=== PATIENT | male | born 1965 | race American Indian/Alaskan Native ===

== ENCOUNTER 2016-10-02 19:19 | Emergency (ER) | payer BC ==
[2016-10-02] MEDS ORDERED: ACTIVASE ONE (19:27)
[2016-10-02] MEDS ORDERED: NACL 0.9% 1000 ML 1,000 ML IV ONE (19:28)
--- NOTE | 2016-10-02 19:33 | Emergency Department Report ---
ED Neuro Deficit HPI - General Chief Complaint: Neuro Symptoms/Deficit Stated Complaint: POSSIBLE CVA Time Seen by Provider: 10/02/16 19:27 Source: patient, family Mode of arrival: Ambulatory Limitations: Other (cva) - History of Present Illness Initial Comments: Patient is a 50-year-old male with a history of sarcoidosis, hypertension, hyperlipidemia, previous stroke with no deficits presented to the ER with acute stroke. He was last seen normal at 1715 by when he reported that he couldn 't move the right side of his body, slurred speech, and altered mental status. However, patient noted not be feeling well this morning with vertigo and vomiting at 11 am and this was the same presentation he had the last time he had a stroke. The last known normal time is unclear at this time. Otherwise patient has no deficits patient works a normal job patient lives with at home. No fevers, chills, headache, dizziness, abdominal pain, chest pain, shortness of breath, travel, sick contacts. Patient does take a baby aspirin 81 mg daily. -: hour(s) Last Observed Normal: 17:15 Location: right face, right arm, right leg Presenting Symptoms: Present: Weak/Paralyzed One Side, Facial Droop/Numbness, Unable to Speak Clearly Place: home Severity: moderate, severe Quality: weak Improves With: none Worsens With: none On Anticoagulants: Yes (asa 81 mg daily) Context: sudden onset - Related Data Home Medications: Home Medications Medication Instructions Recorded Confirmed Last Taken Atenolol/Chlorthalidone [Tenoretic 1 tab PO QDAY 10/02/16 10/02/16 Unknown 50-25] Previous Rx's Medication Instructions Recorded Last Taken Type Aspirin [Aspirin TAB] 325 mg PO QDAY #30 tablet 09/12/15 Unknown Rx AtorvaSTATin [Lipitor] 20 mg PO QHS #30 tablet 09/12/15 Unknown Rx Allergies/Adverse Reactions: Allergies Allergy/AdvReac Type Severity Reaction Status Date / Time No Known Allergies Allergy Verified 08/13/13 06:01 ED Review of Systems ROS: Stated complaint: POSSIBLE CVA Other details as noted in HPI Comment: Unobtainable due to pts medical conditions ED Past Medical Hx - Past Medical History Hx Hypertension: Yes Hx CVA: Yes (No deficits) Additional medical history: SARCODOSIS, Leaking Heart Valve, HLD - Social History Smoking Status: Never Smoker - Medications Home Medications: Home Medications Medication Instructions Recorded Confirmed Last Taken Type Aspirin [Aspirin TAB] 325 mg PO QDAY #30 tablet 09/12/15 10/02/16 Unknown Rx AtorvaSTATin [Lipitor] 20 mg PO QHS #30 tablet 09/12/15 10/02/16 Unknown Rx Atenolol/Chlorthalidone [Tenoretic 1 tab PO QDAY 10/02/16 10/02/16 Unknown History 50-25] ED Neuro Physical Exam - General Limitations: Altered Mental Status, Other (dysarthric) General appearance: lethargic Suspected Stroke: Yes - Head Head exam: Present: atraumatic, normocephalic - Eye Eye exam: Present: normal appearance, PERRL, EOMI. Absent: scleral icterus, conjunctival injection, nystagmus Pupils: Present: normal accommodation. Absent: irregular, unequal, miosis - ENT ENT exam: Present: mucous membranes moist - Neck Neck exam: Present: normal inspection - Respiratory Respiratory exam: Present: normal lung sounds bilaterally. Absent: respiratory distress - Cardiovascular Cardiovascular Exam: Present: regular rate, normal rhythm. Absent: systolic murmur, diastolic murmur, rubs, gallop - GI/Abdominal GI/Abdominal exam: Present: soft, normal bowel sounds - Rectal Rectal exam: Present: deferred - Extremities Exam Extremities exam: Present: normal inspection. Absent: full ROM, tenderness, pedal edema, joint swelling, calf tenderness - Expanded Upper Extremity Exam Left General: Present: normal inspection Shoulder Exam: Present: normal inspection, full ROM Upper Arm exam: Present: normal inspection, full ROM Elbow exam: Present: normal inspection, full ROM Forearm Wrist exam: Present: normal inspection, full ROM Hand Wrist exam: Present: normal inspection, full ROM Neuro motor exam: Present: wrist extension intact, thumb opposition intact, thumb IP flexion intact, thumb adduction intact, fingers 2-5 abduction intact, other (Strength 4/5 left upper and lower) Neurosensory exam: Present: radial nerve intact, ulnar nerve intact, median nerve intact Vascular: Present: normal capillary refill, radial pulse, ulnar pulse. Absent: vascular compromise Right General: Present: normal inspection Shoulder Exam: Present: normal inspection. Absent: full ROM Upper Arm exam: Present: normal inspection. Absent: full ROM, tenderness, swelling, deformity Elbow exam: Present: normal inspection. Absent: full ROM, tenderness, swelling , deformity Forearm Wrist exam: Present: normal inspection. Absent: full ROM, tenderness, deformity Hand Wrist exam: Present: normal inspection. Absent: full ROM, tenderness, swelling, deformity Neuro motor exam: Present: other (Completely flaccid Righ upper extremity) Neurosensory exam: Absent: 2-point discrimination Vascular: Present: normal capillary refill, radial pulse. Absent: vascular compromise - Expanded Lower Extremity Exam Right Hip exam: Present: normal inspection. Absent: full ROM, tenderness, swelling, deformity Upper Leg exam: Present: normal inspection. Absent: full ROM, tenderness, swelling, deformity Knee exam: Present: normal inspection. Absent: full ROM, tenderness, swelling, deformity Lower Leg exam: Present: normal inspection. Absent: full ROM, tenderness, swelling, deformity Ankle exam: Present: normal inspection. Absent: full ROM, tenderness, swelling , deformity Foot/Toe exam: Present: normal inspection. Absent: full ROM, tenderness, swelling, deformity Neuro vascular tendon exam: Present: no vascular compromise, motor deficit, abnormal 2-point discrimination. Absent: pulse deficit, abnormal cap refill, sensory deficit Gait: Positive: not tested/not observed (Right lower leg flaccid) - Back Exam Back exam: Present: normal inspection - Neurological Exam Neurological exam: Present: abnormal gait, motor sensory deficit, other ( dysarthric, R sided facial droop) - NIHSS Assessment Interval: Baseline 1a. Level of Consciousness: not alert, arousable 1b. LOC Questions: answers 1 question correctly 1c. LOC Commands: performs 1 task correctly 2. Best Gaze: normal 3. Visual: no visual loss 4. Facial Palsy: minor paralysis 5b. Motor Arm Right: no movement 5a. Motor Arm Left: no drift 6a. Motor Leg Left: no drift 6b. Motor Leg Right: no movement 7. Limb Ataxia: present 1 limb 8. Sensory: normal 9. Best Language: mild/moderate aphasia 10. Dysarthria: severe dysarthria 11. Extinction/Inattention: profound inattention Total Score: 18 Stroke Severity: Moderate to Severe Stroke - Skin Skin exam: Present: warm, dry, intact ED Course Vital Signs 10/02/16 10/02/16 19:52 20:46 Pulse Rate 59 L Respiratory 14 Rate Blood Pressure 120/67 [Left] O2 Sat by Pulse 98 100 Oximetry - Lab Data Result diagrams: 10/02/16 19:25 10/02/16 19:25 Lab Results 10/02/16 10/02/16 10/02/16 Range/Units 19:25 19:25 19:25 WBC 9.6 (4.5-11.0) K/mm3 RBC 6.48 H (3.65-5.03) M/mm3 Hgb 13.2 (11.8-15.2) gm/dl Hct 42.4 (35.5-45.6) % MCV 66 L (84-94) fl MCH 20 L (28-32) pg MCHC 31 L (32-34) % RDW 15.6 H (13.2-15.2) % Plt Count 209 (140-440) K/mm3 Lymph % (Auto) 11.2 L (13.4-35.0) % [place] % (Auto) 7.0 (0.0-7.3) % Eos % (Auto) 0.0 (0.0-4.3) % Baso % (Auto) 0.4 (0.0-1.8) % Lymph # 1.1 L (1.2-5.4) K/mm3 [place] # 0.7 (0.0-0.8) K/mm3 Eos # 0.0 (0.0-0.4) K/mm3 Baso # 0.0 (0.0-0.1) K/mm3 Seg Neutrophils % 81.4 H (40.0-70.0) % Seg Neutrophils # 7.8 H (1.8-7.7) K/mm3 PT 13.8 (12.2-14.9) Sec. INR 1.07 (0.87-1.13) APTT 33.7 (24.2-36.6) Sec. Thrombin Time 16.8 (15.1-19.6) Sec. Sodium 137 (137-145) mmol/L Potassium 3.6 (3.6-5.0) mmol/L Chloride 95.1 L (98-107) mmol/L Carbon Dioxide 26 (22-30) mmol/L Anion Gap 20 mmol/L BUN 15 (9-20) mg/dL Creatinine 0.8 (0.8-1.5) mg/dL Estimated GFR > 60 ml/min BUN/Creatinine Ratio 18.75 % Glucose 188 H (75-100) mg/dL Calcium 9.0 (8.4-10.2) mg/dL Magnesium (1.7-2.3) mg/dL Total Bilirubin 0.9 (0.1-1.2) mg/dL AST 31 (5-40) units/L ALT 27 (7-56) units/L Alkaline Phosphatase 91 (35-129) units/L Total Creatine Kinase 501 H (55-170) units/L CK-MB (CK-2) 8.5 H (0.0-4.0) ng/mL CK-MB (CK-2) Rel Index 1.6 (0-4) Troponin T < 0.010 (0.00-0.029) ng/mL Total Protein 7.6 (6.3-8.2) g/dL Albumin 3.9 (3.9-5) g/dL Albumin/Globulin Ratio 1.1 % Urine Color (Yellow) Urine Turbidity (Clear) Urine pH (5.0-7.0) Ur Specific [place] (1.003-1.030) Urine Protein (Negative) mg/dL Urine Glucose (UA) (Negative) mg/dL Urine Ketones (Negative) mg/dL Urine Blood (Negative) Urine Nitrite (Negative) Urine Bilirubin (Negative) Urine Urobilinogen (<2.0) mg/dL Ur Leukocyte Esterase (Negative) Urine WBC (Auto) (0.0-6.0) /HPF Urine RBC (Auto) (0.0-6.0) /HPF Hyaline Casts /LPF Urine Mucus /HPF 10/02/16 10/02/16 Range/Units 20:00 20:16 WBC (4.5-11.0) K/mm3 RBC (3.65-5.03) M/mm3 Hgb (11.8-15.2) gm/dl Hct (35.5-45.6) % MCV (84-94) fl MCH (28-32) pg MCHC (32-34) % RDW (13.2-15.2) % Plt Count (140-440) K/mm3 Lymph % (Auto) (13.4-35.0) % [place] % (Auto) (0.0-7.3) % Eos % (Auto) (0.0-4.3) % Baso % (Auto) (0.0-1.8) % Lymph # (1.2-5.4) K/mm3 [place] # (0.0-0.8) K/mm3 Eos # (0.0-0.4) K/mm3 Baso # (0.0-0.1) K/mm3 Seg Neutrophils % (40.0-70.0) % Seg Neutrophils # (1.8-7.7) K/mm3 PT (12.2-14.9) Sec. INR (0.87-1.13) APTT (24.2-36.6) Sec. Thrombin Time (15.1-19.6) Sec. Sodium (137-145) mmol/L Potassium (3.6-5.0) mmol/L Chloride (98-107) mmol/L Carbon Dioxide (22-30) mmol/L Anion Gap mmol/L BUN (9-20) mg/dL Creatinine (0.8-1.5) mg/dL Estimated GFR ml/min BUN/Creatinine Ratio % Glucose (75-100) mg/dL Calcium (8.4-10.2) mg/dL Magnesium 1.9 (1.7-2.3) mg/dL Total Bilirubin (0.1-1.2) mg/dL AST (5-40) units/L ALT (7-56) units/L Alkaline Phosphatase (35-129) units/L Total Creatine Kinase (55-170) units/L CK-MB (CK-2) (0.0-4.0) ng/mL CK-MB (CK-2) Rel Index (0-4) Troponin T < 0.010 (0.00-0.029) ng/mL Total Protein (6.3-8.2) g/dL Albumin (3.9-5) g/dL Albumin/Globulin Ratio % Urine Color Yellow (Yellow) Urine Turbidity Clear (Clear) Urine pH 7.0 (5.0-7.0) Ur Specific [place] 1.017 (1.003-1.030) Urine Protein 100 mg/dl (Negative) mg/dL Urine Glucose (UA) Neg (Negative) mg/dL Urine Ketones 20 (Negative) mg/dL Urine Blood Neg (Negative) Urine Nitrite Neg (Negative) Urine Bilirubin Neg (Negative) Urine Urobilinogen < 2.0 (<2.0) mg/dL Ur Leukocyte Esterase Neg (Negative) Urine WBC (Auto) < 1.0 (0.0-6.0) /HPF Urine RBC (Auto) < 1.0 (0.0-6.0) /HPF Hyaline Casts 1 /LPF Urine Mucus Few /HPF - EKG Data -: EKG Interpreted by Me EKG shows normal: sinus rhythm, axis (normal), intervals (1st degree AV block, QTc: 470ms), QRS complexes (narrow), ST-T waves (TWI in II, III, aVF, V3-V6, (-) ST changes, no STEMI) Rate: bradycardia (56 bpm) When compared to previous EKG there are: changes noted, other (TWI in inferior leads are more pronounced, TWI in V3 is new) - Medical Decision Making Elevated upon initial arrival for dysarthria, right-sided flaccid upper and lower extremity. 19:[address] scanner 19:[address] Flanagan neurologist will evaluate the patient via robot Discussed with radiologist O intracranial hemorrhage or dense MCA sign of visible, CTA could not be performed due to machine malfunction. 20:[address] Ko at [facility] he reviewed the CAT scan worrisome for a basilar dense sign we will fly the patient from here to [facility] to neuro ICU. - Core Measures AMI Core Measures Followed: Yes Door to CT Read: < 60 minutes Door to Neurologist Consult: 20 minutes - Thrombolytic Inclusion/Exclusion Thrombolytic Exclusion Criteria: Symptom Onset > 3 Hours Thrombolytic Inclusion Criteria: Negative CT Scan for ICH Critical Care Time: Yes (60 minutes) Critical care time in (mins) excluding proc time.: 60 (minutes) Critical care attestation.: If time is entered above; I have spent that time in minutes in the direct care of this critically ill patient, excluding procedure time. Critical Care Time: 60 mins ED Disposition Clinical Impression: CVA (cerebral vascular accident), Full code status Disposition: DC/TX ANOTHER TYPE HEALTHCARE Is pt being admited?: No Condition: Critical Additional Instructions: Pt to be transferred to [facility] neuro ICU to be evaluated by Dr Ko and his team
[2016-10-02 19:53] LABS: Basophils % (Auto) 0.4 % (0.0-1.8); Hematocrit 42.4 % (35.5-45.6); Hemoglobin 13.2 gm/dl (11.8-15.2); Mean Corpuscular HGB Conc 31 % (32-34); Platelet Count 209 K/mm3 (140-440); Red Blood Count 6.48 M/mm3 (3.65-5.03); Red Cell Distribution Width 15.6 % (13.2-15.2); White Blood Count 9.6 K/mm3 (4.5-11.0)
--- NOTE | 2016-10-02 19:53 | Cat Scan Report ---
FINAL REPORT EXAM: CT HEAD/BRAIN WO CON HISTORY: suspected stroke TECHNIQUE: Standard unenhanced CT of the head at 2.5 millimeter axial increments. PRIORS: CT head 09/10/2015 FINDINGS: The ventricular system is normal in size and configuration. There is no evidence for parenchymal volume loss. There is a remote infarct involving the left occipital lobe along midline medially which has evolved since the previous exam. There is also stable low-density in the right frontal lobe near the sylvian fissure probably due to prior infarct. There is no evidence for mass lesion, mass effect, midline shift, acute intracranial hemorrhage, or acute ischemia/ infarction. No evidence for acute skull fracture is seen. No abnormality in the overlying scalp soft tissues is seen. Visualized paranasal sinuses demonstrate air-fluid levels in the maxillary sinuses. Numerous ethmoid air cells are also completely opacified. The sphenoid and frontal sinuses are clear. Mastoid air cells are normal IMPRESSION: 1. no acute intracranial process noted. No evidence for new infarct. 2. Areas of remote infarct in the left occipital lobe and right frontal lobe 3. Acute sinusitis of the ethmoid and maxillary sinuses bilaterally
[2016-10-02 19:57] LABS: Mean Corpuscular Hemoglobin 20 pg (28-32); Mean Corpuscular Volume 66 fl (84-94)
[2016-10-02 20:06] LABS: Creatine Kinase MB 8.5 ng/mL (0.0-4.0); INR 1.07 (0.87-1.13); Partial Thromboplastin Time 33.7 Sec. (24.2-36.6)
[2016-10-02 20:07] LABS: Alanine Aminotransferase 27 units/L (7-56); Albumin 3.9 g/dL (3.9-5); Albumin/Globulin Ratio 1.1 %; Alkaline Phosphatase 91 units/L (35-129); Anion Gap 20 mmol/L; BUN/Creatinine Ratio 18.75; Bilirubin,Total 0.9 mg/dL (0.1-1.2); Blood Urea Nitrogen 15 mg/dL (9-20); Carbon Dioxide 26 mmol/L (22-30); Chloride 95.1 mmol/L (98-107); Creatine Kinase 501 units/L (55-170); Glucose 188 mg/dL (75-100); Potassium 3.6 mmol/L (3.6-5.0); Sodium 137 mmol/L (137-145); Total Protein 7.6 g/dL (6.3-8.2)
[2016-10-02 20:35] LABS: Bilirubin,Urine NEG (Negative); Blood,Urine NEG (Negative); Ketones,Urine 20 mg/dL (Negative); Leukocyte Esterase,Urine NEG (Negative); Mucus,Urine FEW /HPF; Nitrite,Urine NEG (Negative); RBC,Urine < 1.0 /HPF (0.0-6.0); Urobilinogen,Urine < 2.0 mg/dL (<2.0); WBC,Urine < 1.0 /HPF (0.0-6.0)
[2016-10-02 20:46] VITALS: BP 120/67
[2016-10-02 21:01] LABS: Magnesium 1.9 mg/dL (1.7-2.3)
--- NOTE | 2016-10-03 08:54 | XRay Report ---
Portable chest: Stroke. The lungs are clear. The mediastinal contour is unremarkable. There is no vascular congestion. No significant change compared to prior study in September 2014. Impression: No acute findings.
== END 2016-10-02 21:15 | disposition other institution (70) ==
LOC: ED 19:19
DX: I63.9 Cerebral infarction, unspecified (principal); I10 Essential (primary) hypertension
CPT/HCPCS: 36415; 70450; 71010; 80053; 81001; 82550; 82553; 82962; 83735; 84484; 85025; 85610; 85670; 85730; 93005; 93010; 96360; 99291; J2997; J7030

== ENCOUNTER 2016-11-14 11:13 | Emergency (ER) | payer BC ==
[~2016-11-14 11:13] MED LIST: ADRENALIN ONE; SODIUM BICARBONATE IV ONE
--- NOTE | 2016-11-14 11:30 | Emergency Department Report ---
HPI - General Time Seen by Provider: 11/14/16 11:25 - HPI HPI: This is a 50-year-old -[place] male who presents to the emergency department by EMS in cardiac arrest. Allegedly the patient was in the middle of sexual intercourse when he appeared to go unresponsive and pulseless. EMS was called at 10:28 AM and was at the house shortly afterwards. The patient was intubated by EMS. The patient appeared to be in either V. fib or V. tach, per EMS, and received 4 different defibrillating shocks as well as 4 rounds of epinephrine and one of sodium bicarbonate. The patient allegedly has a past medical history of sarcoidosis and a previous CVA. He presents to the emergency department intubated and still pulseless and ACLS and CPR continued. ED Past Medical Hx - Past Medical History Hx Hypertension: Yes Hx CVA: Yes (No deficits) Additional medical history: SARCODOSIS, Leaking Heart Valve, HLD - Social History Smoking Status: Never Smoker - Medications Home Medications: Home Medications Medication Instructions Recorded Confirmed Last Taken Type Aspirin [Aspirin TAB] 325 mg PO QDAY #30 tablet 09/12/15 10/02/16 Unknown Rx AtorvaSTATin [Lipitor] 20 mg PO QHS #30 tablet 09/12/15 10/02/16 Unknown Rx Atenolol/Chlorthalidone [Tenoretic 1 tab PO QDAY 10/02/16 10/02/16 Unknown History 50-25] ED Review of Systems ROS: Stated complaint: CHF Other details as noted in HPI Comment: Unobtainable due to pts medical conditions Physical Exam - Physical Exam Physical Exam: GENERAL: Patient is ill-appearing and unresponsive. HEENT: Normocephalic. Right pupil was not visible but appears chronic. The left pupil is fixed and dilated. There is a ET tube in place. NECK: Supple. Trachea is midline. CHEST/LUNGS: There are no spontaneous lung sounds. HEART/CARDIOVASCULAR: No spontaneous heart sounds. ABDOMEN: Abdomen is soft. SKIN: Skin is cool but dry. NEURO: Patient is unresponsive to verbal, tactile or painful stimuli and does not follow any commands. MUSCULOSKELETAL: There is no deformity. No spontaneous movement of the extremities. There was no palpable pulse to the radial or femoral regions. ED Medical Decision Making - Medical Decision Making 50-year-old male presents in cardiac arrest. He had already received 4 defibrillating shocks due to some V. fib and/or V. tach, was intubated and allegedly arrived in PEA. Patient was placed on our monitor and did appear to be in PEA. Chest compressions were continued immediately. Lung sounds were not symmetrical with it being greater on the right so the tube was pulled back a few centimeters and there was better airflow heard to the left lung. Overall airflow was diminished but apparent. Chest rise was seen. The patient got into the emergency department about 11:05 AM. I supervised ACLS protocol. Patient received 2 rounds of epinephrine and another sodium bicarbonate. For the first 2 rounds, the patient was pulseless in PEA. On the third rhythm check the patient appeared to be in some type of fine V. fib so he was given a 200 J defibrillation. Chest compressions were continued and the patient was given another epinephrine. At this point during the rhythm check the patient appeared to be in PEA. He still did not have a pulse. The ultrasound was used to look at the patient's heart and there was no squeeze or movement seen. Patient's left pupil was fixed and dilated. There were no spontaneous heart or breath sounds. Time of was called for 11:21 AM, about 50 minutes after the patient was first down. Critical Care Time: Yes Critical care time in (mins) excluding proc time.: 15 Critical care attestation.: If time is entered above; I have spent that time in minutes in the direct care of this critically ill patient, excluding procedure time. Critical care time spent on this patient and doing his initial evaluation, supervision of ACLS, calling time of and discussion with the patient's . Critical Care Time: 15 mins ED Disposition Clinical Impression: Cardiac arrest Respiratory failure Qualifiers: Chronicity: acute Respiratory failure complication: unspecified whether with hypoxia or hypercapnia Qualified Code(s): J96.00 - Acute respiratory failure, unspecified whether with hypoxia or hypercapnia Disposition: Is pt being admited?: No Time of Disposition: 12:19
== END 2016-11-14 14:00 ==
LOC: ED 11:13
DX: I46.9 Cardiac arrest, cause unspecified (principal); J96.00 Acute respiratory failure, unspecified whether with hypoxia or hypercapnia; I10 Essential (primary) hypertension; Z86.73 Personal history of transient ischemic attack (TIA), and cerebral infarction without residual deficits
CPT/HCPCS: 92950; 99285; J0171